=== PATIENT | male | born 1975 | race Caucasian/White ===

== ENCOUNTER → 2017-03-24 | Outpatient (CLI) | payer OTHER ==
--- NOTE | 2017-03-24 13:42 | REP ---
Clinical: Lower back pain. Technique: AP, lateral, bilateral oblique and coned-down views of the lumbosacral spine. Findings: Early moderate multilevel degenerative changes include endplate sclerosis/heterogeneity and disc space narrowing along with subtle marginal spurring and hypertrophic facet changes. There is no evidence for acute fracture / compression injury. 4 mm of retrolisthesis at the L5-S1 level cannot be excluded. Impression: Early moderate multilevel degenerative changes. Signed by Ramirez Somers MD 03/24/2017 01:34 P
== END ==
LOC: M RAD 12:23
PROVIDERS: ATTEND Surgery
DX: M51.9 Unspecified thoracic, thoracolumbar and lumbosacral intervertebral disc disorder (principal)